=== PATIENT | male | born 1940 ===

== ENCOUNTER 2016-09-15 10:04 | Inpatient (IN) | payer MEDICARE ==
[2016-09-04 12:46] LABS: BASOPHILS 0.6 %; BASOPHILS ABSOLUTE 0.04 10/3/uL (0.0-0.16); EOSINOPHILS 4.4 %; IMMATURE GRANULOCYTES 0.1 %; IMMATURE GRANULOCYTES ABSOLUTE 0.01 10/3/uL (0.0-0.11); LYMPHOCYTES 15.3 %; LYMPHOCYTES ABSOLUTE 1.04 10/3/uL (0.67-4.30); MEAN CORPUS HGB CONC 32.3 g/dL (32.0-36.0); MEAN CORPUSCULAR HEMOGLOB 30.9 pg (26.0-34.0); MEAN CORPUSCULAR VOLUME 95.8 fL (80-100); MEAN PLATELET VOLUME 10.7 fL (9.2-13.0); MONOCYTES 9.9 %; MONOCYTES ABSOLUTE 0.67 10/3/uL (0.21-1.20); NEUTROPHILS 69.7 %; NEUTROPHILS ABSOLUTE 4.74 10/3/uL (2.02-8.40); PLATELET COUNT 213 10/3/uL (150-400); RBC DISTRIBUTION WIDTH 14.8 % (12.0-16.0); WHITE BLOOD CELLS 6.8 10/3/uL (4.5-10.5)
[2016-09-04 12:47] LABS: HEMATOCRIT 41.5 % (40.0-51.0); HEMOGLOBIN 13.4 g/dL (13.6-17.8); MANUAL DIFF NO %; RED CELL COUNT 4.33 10/6/uL (4.7-6.1)
[2016-09-04 12:50] LABS: INTERNATIONAL NORMAL RATI 1.1 UNITS (-); PROTIME (NOT ORD) 13.6 SEC (12.0-14.5)
[2016-09-04 13:07] LABS: B NATRIURETIC PEPTIDE (BNP) 61.2 PG/ML (< 100.0)
[2016-09-04 13:10] LABS: GLYCOHEMOGLOBIN (HbA1c) 5.4 % (4.7-6.1)
[2016-09-04 14:28] LABS: ASCORBIC ACID (UR NOT ORDER) NEG (NEG); BILIRUBIN, URINE NEGATIVE (NEG); KETONE, URINE NEGATIVE (NEG); LEUKOCYTE ESTERASE(NOT OR NEG (NEG); WBC (NOT ORDERED) (RFLEX) < 1 (0-5)
[2016-09-04 14:33] LABS: A/G RATIO 1.2 (0.7-1.9); ALBUMIN 3.8 G/DL (3.5-5.0); ALKALINE PHOSPHATASE 102 U/L (45-117); CALCIUM, SERUM 8.9 MG/DL (8.5-10.4); CHLORIDE, SERUM 99 MMOL/L (96-112); CO2 (CARBON DIOXIDE) 32 MMOL/L (24-34); CREATININE 1.97 MG/DL (0.70-1.30); GFR AFRICAN AMERICAN 37 ML/MIN (>=60); GFR NON AFRICAN AMERICAN 32 ML/MIN (>=60); GLOBULIN 3.3 G/DL (2.5-4.1); GLUCOSE, SERUM 121 MG/DL (60-99); POTASSIUM, SERUM 3.6 MMOL/L (3.5-5.3); SGOT(AST) 19 U/L (5-40); SGPT(ALT) 23 U/L (5-65); SODIUM, SERUM 140 MMOL/L (135-148); TOTAL PROTEIN 7.1 G/DL (6.0-8.5)
[2016-09-04 14:35] LABS: BUN (BLOOD UREA NITROGEN) 32 MG/DL (6-23)
--- NOTE | ~2016-09-15 | OP ---
Record Of Operation [facility] [address] [place]. [address] NAME: RIZWANA MASTERS : 40 STATUS : ADM IN PAT#: [id number] AGE: 76 ADM/REG DATE : 09/15/16 MR#: [id number] REPORT SERV DATE: 09/16/16 DICTATED BY: EZEKIEL HACKETT DATE: 09/15/16 REPORT STATUS : Draft TRANSCRIBED BY: MODL DATE: 09/15/16 DATE OF PROCEDURE: 09/15/2016 PREOPERATIVE DIAGNOSES: 1. Aortic valve stenosis. 2. Coronary artery disease status post previous coronary artery bypass grafting. 3. Peripheral vascular disease. 4. Cerebrovascular disease with history of right carotid endarterectomy. 5. Chronic kidney disease, stage III. 6. Atrial fibrillation, paroxysmal. 7. History of gastrointestinal bleed. 8. Morbid obesity. 9. Chronic obstructive pulmonary disease. 10.Obstructive sleep apnea. 11.Recent gastrointestinal bleed. 12.Pulmonary hypertension. POSTOPERATIVE DIAGNOSES: 1. Aortic valve stenosis. 2. Coronary artery disease status post previous coronary artery bypass grafting. 3. Peripheral vascular disease. 4. Cerebrovascular disease with history of right carotid endarterectomy. 5. Chronic kidney disease, stage III. 6. Atrial fibrillation, paroxysmal. 7. History of gastrointestinal bleed. 8. Morbid obesity. 9. Chronic obstructive pulmonary disease. 10.Obstructive sleep apnea. 11.Recent gastrointestinal bleed. 12.Pulmonary hypertension. PROCEDURES PERFORMED: 1. Transfemoral aortic valve replacement, right femoral, 26 mm S3 pericardial valve. 2. ProGlide closure of the right femoral artery x2, left femoral artery x1. 3. Left femoral vein. Placement of temporary venous pacing catheter, ventricular. 4. Ascending aortography. 5. Aorto-iliofemoral angiogram, right. 6. Transthoracic echocardiography. SURGEON: Cardiothoracic surgeon, Ezekiel Hackett M.D. INTERVENTION TUBULAR RIVETER: Dr. Levine and Dr. Amador. ECHO TUBULAR RIVETER: Presley Han M.D., Ph.D, F.A.C.C. PRIMARY TUBULAR RIVETER: Aníbal Devi M.D. Record Of Operation [facility] [address] [place]. [address] NAME: RIZWANA MASTERS : 40 STATUS : ADM IN PAT#: [id number] AGE: 76 ADM/REG DATE : 09/15/16 MR#: [id number] REPORT SERV DATE: 09/16/16 DICTATED BY: EZEKIEL HACKETT DATE: 09/15/16 REPORT STATUS : Draft TRANSCRIBED BY: KAYLA DATE: 09/15/16 INDICATIONS: This is a 76-year-old gentleman, who is 11 years following a coronary artery bypass grafting x4. He presented to [facility] at the end of July with chest discomfort and dyspnea with exertion. He was found to have significant anemia and did have evidence of GI hemorrhage. He was evaluated by Dr. Devi and GI medicine. GI bleed was resolved. Echocardiography demonstrated critical aortic valve stenosis. He then underwent a cardiac catheterization, which demonstrated significant aortic valve stenosis. His valve area was 1.0 cm2 with a peak gradient of 90 mmHg. He had patent grafts to the ramus and PDA vessels and a ROBERTSON graft to the LAD. A single occluded vein graft to the diagonal was noted. The patient had good ventricular function with an ejection fraction greater than 50%. He was referred for possible reoperative surgical aortic valve replacement. The patient had a calculated STS prediction of mortality of greater than 10% morbidity, mortality greater than 40%. This was discussed with the patient and his . He was felt to be at elevated risk and referred to be considered for possible transcatheter aortic valve replacement. The patient was seen in T[facility]R Clinic and he was felt to be a reasonable candidate for TAVR. He does have significant pulmonary hypertension and chronic kidney disease stage III. After discussing the operation, indications, risks, they wished to proceed. FINDINGS AT OPERATION: 1. Transthoracic echocardiography at the end of the operation demonstrated good ventricular function with no significant aortic valve insufficiency, very minimal mitral insufficiency. 2. The total rapid time of pacing was 26 seconds. 3. Actual time of TAVR deployment was 1601. 4. Pre cardiac output was 5.3. Post cardiac output 4.7 L/minute. 5. Pre deployment of valve area was 0.73 cm2. Post deployment valve area was 2.53 cm2. 6. Aortic pressures pre implant: Systolic, 133, diastolic 55, mean 75 mmHg. 7. Postimplant aortic pressures: Systolic 146, diastolic 54, mean 79 mmHg. 8. Pre-implant AV gradient 53 mmHg with peak gradient of 58 mmHg. Post implant gradient of 8 and 6 respectively. 9. Total contrast volume used 52 mL. 10.Fluoro time was 16.1 minutes. 11.Estimated blood loss 50 mL. 12.Total milligray used was 2653. 13.Aortic insufficiency index was 23. 14.The patient had bradycardia intermittently during the procedure and pacemaker was left in place in the left femoral vein with backup pacing. 15.Doppler pulses were present at the feet at the end of the operation. DESCRIPTION OF PROCEDURE: The patient was brought to the operating suite where he was laid in the supine position. MAC sedation with Diprivan was provided by Anesthesia. [place]-Lynette catheter had been placed preop along with arterial line. The patient's abdomen, groin, and legs were prepped with Hibiclens and ChloraPrep and draped with Ioban sterile sheets. Access to both femoral arteries and femoral vein were performed using micro puncture technique with Microglide wires and confirmatory arteriography in the vessels. 6-Russian introducers were placed in all three structures. Record Of Operation [place] [address] [place]. [address] NAME: RIZWANA MASTERS : 40 STATUS : ADM IN [facility]#: [id number] AGE: 76 ADM/REG DATE : 09/15/16 MR#: [id number] REPORT SERV DATE: 09/16/16 DICTATED BY: EZEKIEL HACKETT DATE: 09/15/16 REPORT STATUS : Draft TRANSCRIBED BY: KAYLA DATE: 09/15/16 Left femoral venous sheath was placed and this was a 6-Russian introducer also. Through this left femoral sheath, the temporary pacing catheter was advanced into the right ventricle and positioned under fluoroscopic guidance. Confirmatory pacing was performed and the catheter secured to the skin. A guidewire was then placed into the ascending aorta through the left femoral artery sheath and a pigtail catheter guided into the aortic root in the right coronary cusp guided by fluoroscopy. On the right groin, an exchange wire was placed through the 6-Russian introducer sheath and two ProGlides were then placed using the Perclose technique. Once these were secured, heparin was administered by Anesthesia. An exchange J catheter was then placed in the ascending aorta and a Lunderquist wire advanced into the ascending aorta. Then, this tract was dilated over the Lunderquist wire with the Maldonado dilator for the valve. We then placed the dilator into this sheath and this was advanced into the right femoral artery into the descending abdominal aorta under fluoroscopic guidance. Then, an AL1 catheter was advanced into the ascending aorta of Lunderquist wire which was removed and soft straight wire placed through the aortic valve into the left ventricle. Next, the Patrick catheter was advanced over this guidewire and placed in the left ventricle. Simultaneous pressure readings were obtained. Next, extra stiff wire was placed into the left ventricle through Patrick and the [place] catheter was removed. Then, the 26 mm S3 valve was brought up on the Maldonado introduction system. This was placed into the sheath and advanced into the descending thoracic aorta. The valve was positioned on the pusher and confirmed. The aortic valve prosthesis was then advanced across the aortic valve in position. With rapid atrial pacing, a confirmatory ascending aortogram was performed and then the valve was deployed in the usual manner using the balloon. The balloon was deflated and rapid ventricular pacing was discontinued. The valve delivery system was then brought back into the descending thoracic aorta. Contrast aortography demonstrated possible aortic insufficiency and we readvanced deployment system across the aortic valve once again and with the balloon in place, performed another dilation with an additional 1.5-2 mL of contrast. Once this was completed, the valve deployment system was then brought back down into the descending thoracic aorta. Echocardiography did not demonstrate any significant aortic insufficiency and on contrast aortography, we did not see any aortic insufficiency after the second dilatation. Then, the valve deployment system was brought out of the Maldonado sheath. An exchange wire was placed up into the sheath and the sheath was removed and the ProGlide Perclose devices were deployed in the usual fashion and good hemostasis was obtained at the right femoral artery. The pigtail catheter placed earlier in the right coronary cusp was then brought back down into the abdominal aorta at the bifurcation and a right aortoiliac angiogram with right femoral runoff was performed to confirm that there was good closure of the right femoral arteriotomy site and no stenosis. We then removed the pigtail catheter. An exchange wire was then placed up the left femoral Record Of Operation [facility] [address] [place]. [address] NAME: RIZWANA MASTERS : 40 STATUS : ADM IN [facility]#: [id number] AGE: 76 ADM/REG DATE : 09/15/16 MR#: [id number] REPORT SERV DATE: 09/16/16 DICTATED BY: EZEKIEL HACKETT DATE: 09/15/16 REPORT STATUS : Draft TRANSCRIBED BY: KAYLA DATE: 09/15/16 arterial sheath and the 6-Russian introducer was removed and a ProGlide device was placed into the left femoral artery and deployed. There was good hemostasis of the left femoral artery after deployment of the Perclose device. Because of the intermittent pacing after the deployment of the valve, the temporary transvenous pacemaker in the left femoral vein was left in place. The [place]-Lynette catheter was removed in the operating room. The patient tolerated the procedure well with no complications. Sponge and needle counts were correct. DISPOSITION: The patient was taken to the intensive care unit in stable condition. Pedal pulses were noted. NITHYA/KAYLA Ezekiel Hackett M.D. / [id number] CC: Swetha Garcia M.D. William Oellerich, M.D., Ph.D, F.A.C.C.
--- NOTE | ~2016-09-15 | OP ---
Record Of Operation [place] [address] [facility] [place]. [address] NAME: RIZWANA MASTERS : 40 STATUS : ADM IN PAT#: [id number] AGE: 76 ADM/REG DATE : 09/15/16 MR#: [id number] REPORT SERV DATE: 09/16/16 DICTATED BY: KATHLEEN GONZALES DATE: 09/15/16 REPORT STATUS : Draft TRANSCRIBED BY: KAYLA DATE: 09/15/16 DATE OF PROCEDURE: PROCEDURE PERFORMED: 1. Transcatheter aortic valve implantation with a 26 mm Maldnoado Gerson S3 valve from a right transfemoral approach. 2. Temporary transvenous pacemaker placement, left femoral vein to right ventricle. 3. Ascending aortogram. 4. Iliac angiogram. 5. Echocardiography. 6. ProGlide closure x2 right femoral artery successful. 7. ProGlide closure x1, left femoral artery successful. SURGEONS: Kathleen Gonzales M.D.; Sim Ortiz M.D.; and Edgar Hackett M.D. ABATEMENT WORKER: Sana. ANESTHESIA: MAC and local. ECHOCARDIOGRAPHY: Presley Han M.D., Ph.D, F.A.C.C. SPECIMEN REMOVED: None. ESTIMATED BLOOD LOSS: Less than 50 mL. FLUOROSCOPY TIME: 16.1 minutes, mGy 2653. CONTRAST: 52 mL nonionic. COMPLICATIONS: None. PREOPERATIVE DIAGNOSES: 1. Severe aortic stenosis with aortic valve area 0.8 square cm. 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 2. High surgical risk with STS score of 10% mortality and 40.1% morbidity and mortality. 3. Severe pulmonary hypertension with PA pressure of 80/35 mmHg. 4. Coronary artery disease, status post coronary artery bypass grafting. 5. Carotid artery disease with 70% right and grade 1 left carotid stenosis status post carotid endarterectomy. 6. Morbid obesity. 7. Sleep apnea. 8. Chronic obstructive pulmonary disease. 9. Chronic kidney disease stage III. 10.Hypertension. 11.Diabetes mellitus. 12.Status post GI bleed in July. Record Of Operation [place] [address] [facility] [place]. [address] NAME: RIZWANA MASTERS : 40 STATUS : ADM IN PAT#: [id number] AGE: 76 ADM/REG DATE : 09/15/16 MR#: [id number] REPORT SERV DATE: 09/16/16 DICTATED BY: CHRISTIANKATHLEEN Lukas DATE: 09/15/16 REPORT STATUS : Draft TRANSCRIBED BY: KAYLA DATE: 09/15/16 13.Renal artery stenosis. 14.Hyperlipidemia. POSTOPERATIVE DIAGNOSES: 1. 2. Severe aortic stenosis with aortic valve area 0.8 square cm. 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 3. High surgical risk with STS score of 10% mortality and 40.1% morbidity and mortality. 4. Severe pulmonary hypertension with PA pressure of 80/35 mmHg. 5. Coronary artery disease, status post coronary artery bypass grafting. 6. Carotid artery disease with 70% right and grade 1 left carotid stenosis status post carotid endarterectomy. 7. Morbid obesity. 8. Sleep apnea. 9. Chronic obstructive pulmonary disease. 10.Chronic kidney disease stage III. 11.Hypertension. 12.Diabetes mellitus. 13.Status post GI bleed in July. 14.Renal artery stenosis. 15.Hyperlipidemia. 16.No significant AI postoperatively by echocardiography or angiography. DATA FOR THE REGISTRY: 1. Rapid pacing time 26 seconds. Time of valve deployment 1601 hours. Preprocedure: Mean gradient 53, peak gradient 58, cardiac output of 5.3 L/minute. Aortic valve area 0.7 sq cm. Post procedure: Mean gradient of 8, peak gradient of 6, cardiac output of 4.7 L/minute. Aortic valve area 2.5 sq. cm. AI index of 23. Findings: Bradycardia and heart block following valve implantation pacemaker left in place. TECHNIQUE: After informed written consent was obtained from the patient in this situation, he was brought to the hybrid suite on the afternoon of 09/15/2016 in the fasting state. The time-out was performed and correct patient operative plan were confirmed. He had been seen by two cardiac surgeons, Dr. Murry and Dr. Hackett who felt that he was at high surgical risk. He was also seen by Dr. Jules Anders, cardiac surgeon, who felt he was at high surgical risk. Anesthesia was provided by the Anesthesia Service. Please see their notes for further details. MAC and local. The patient was prepped and draped in usual sterile fashion. Local anesthesia was accomplished using 1% lidocaine. Using modified Seldinger technique and a micropuncture set, a 6-Congolese sheath was placed in the left femoral artery, left femoral vein, and right femoral artery all with excellent blood return. The sheaths were double flushed and left in place. Femoral angiograms were obtained bilaterally which demonstrated good stick in the common femoral artery bilaterally, thought suitable for closure. Next a 5-Congolese balloon tipped pacer catheter was advanced from the left femoral vein to the RV under fluoroscopic guidance. The pacer was tested with threshold of less than 0.8 milliamps and secured to plastic dressings and set aside. Next, a 6-Congolese pigtail catheter was advanced over a flexible J-guidewire to the central aorta under fluoroscopic guidance. Guidewire was then withdrawn, catheter double flushed. Pressure recording was Record Of [address] [address] NAME: RIZWANA MASTERS : 40 STATUS : ADM IN [facility]#: [id number] AGE: 76 ADM/REG DATE : 09/15/16 MR#: [id number] REPORT SERV DATE: 09/16/16 DICTATED BY: KATHLEEN GONZALES DATE: 09/15/16 REPORT STATUS : Draft TRANSCRIBED BY: KAYLA DATE: 09/15/16 obtained. Angles were obtained. Next, a pre-close using 2 ProGlide at 10 o'clock and 2 o'clock position was performed in the right femoral artery. Next, the sheath was exchanged for the Maldonado sheath, which was double flushed and left in place. Next, the patient was heparinized to an ACT of greater than 250, 6-Congolese AL1 diagnostic catheter was advanced over a flexible J-guidewire to the central aorta under fluoroscopic guidance. Using a straight guidewire, the aortic valve was crossed. The catheter was then brought to the LV position and using an exchange J guidewire, the catheter was exchanged for a Patrick dual- lumen pigtail catheter. Simultaneous LV and aortic pressures were then obtained. Next, the pre-shaped Extra Stiff wire was advanced to the LV position. The catheter was withdrawn from the body. When all was in readiness, a 26 mm Maldonado Gerson S3 valve was brought to the table orientation was confirmed. The valve was then brought to the descending aorta position under fluoroscopic guidance and the balloon was loaded into the valve in the usual fashion. Alignment was confirmed. Next, the valve was brought around the aortic arch using the flexion on the delivery system, and the valve was brought to the aortic valve position. The pusher was then brought back, fine positioning was performed; when all was in readiness, the sequence was commenced. Respirations were held. Rapid pacing was performed, pressure fell. Cineangiography was performed. Injection was performed which demonstrated good position. The valve was deployed with complete balloon and valve expansion. The balloon was deflated and pacing was ceased. Respirations were resumed. Position looked good under fluoroscopy. Followup angiography revealed mild perivalvular aortic insufficiency. Echocardiography was technically difficult but did not confirm aortic insufficiency; however, due to the angiographic findings decision was made to post dilate using an additional 1.5 mL. The balloon was then brought back to the valve position and the sequence was commenced again with complete balloon and valve expansion the balloon was deflated and followup angiography revealed no significant aortic insufficiency. The pigtail catheter was replaced and simultaneous pressures were performed, but there was no significant gradient. AI index was 23, pullback recording of pressures obtained and the pressures matched. The Maldonado sheath was then removed from the body. The ProGlide sutures were tied with good hemostasis. There was no bleeding and no hematoma. Next, angiogram was performed, which demonstrated good patency of the iliac system with no evidence of dissection or stenosis. Next, ProGlide closure of the left femoral artery was performed with good hemostasis. There was no bleeding and no hematoma. The pacing catheter was left in place due to heart block and bradycardia. He was intermittently using the pacer at the conclusion of the procedure. The patient was given protamine. He tolerated the procedure well without apparent complication. He was then returned to his room in good condition for access management. BN/MODL Kathleen Gonzales M.D. / [id number] CC: Edgar Hackett M.D. Record Of Operation [address] [address] NAME: RIZWANA MASTERS : 40 STATUS : ADM IN PAT#: [id number] AGE: 76 ADM/REG DATE : 09/15/16 MR#: [id number] REPORT SERV DATE: 09/16/16 DICTATED BY: KATHLEEN GONZALES DATE: 09/15/16 REPORT STATUS : Draft TRANSCRIBED BY: MODL DATE: 09/15/16 Flynn Roque M.D.
--- NOTE | ~2016-09-15 | CN ---
Consultation Report [facility] [address] [place]. [address] NAME: RIZWANA MASTERS : 40 STATUS : ADM IN PAT#: [id number] AGE: 76 ADM/REG DATE : 09/15/16 MR#: [id number] REPORT SERV DATE: 09/16/16 DICTATED BY: JOANN IGLESIAS DATE: 09/16/16 REPORT STATUS : Draft TRANSCRIBED BY: MODL DATE: 09/16/16 CONSULT DATE OF CONSULTATION: REASON FOR CONSULTATION: Medical consult for diabetes management. HISTORY OF PRESENT ILLNESS: This is a very pleasant 76 years old gentleman with an extensive past medical history significant for aortic stenosis; coronary artery disease, status post prior CABG; history of CVA; chronic kidney disease; paroxysmal atrial fibrillation; GI bleed; diabetes type 2, insulin dependent; morbid obesity; obstructive sleep apnea, pulmonary hypertension, who has been recently admitted to Cardiology Service for a transcatheter aortic valve implantation and a transvenous temporary pacemaker placement. The patient does have a history of diabetes which is insulin dependent. He is also on Victoza at home with fairly well blood sugar control. Postoperative, the patient is doing great. He denies any complaints of chest pain or shortness of breath. No PND or orthopnea. He does not have any nausea or vomiting. No diarrhea or constipation. No headaches. No other complaints. His blood sugars have been well controlled on insulin drip. Currently, he is able to eat and tolerate diet with no problems. Hospitalist Service has been asked for consult for his diabetes management. PAST MEDICAL HISTORY: Again, past medical history significant for diabetes type 2, insulin dependent; history of GI bleed; history of coronary artery disease, status post CABG; history of chronic kidney disease; peripheral vascular disease; diabetes type 2; hypertension; hyperlipidemia; paroxysmal atrial fibrillation; obstructive sleep apnea; obesity; gout; gallstones; and renal stones. PAST SURGICAL HISTORY: Include CABG, hernia repair, and kidney stone removal. FAMILY HISTORY: Significant for coronary artery disease. ALLERGIES: HE DOES NOT HAVE ANY DRUG ALLERGIES. MEDICATIONS: Currently include allopurinol, aspirin, Bumex, Ancef, vitamin D, Plavix, Apresoline, Mevacor, Bactroban, niacin, Protonix, Senokot, and Levemir. REVIEW OF SYSTEMS: A 14-point review of system has been obtained and pertinent positive has been listed into the history of present illness. Otherwise, negative except those underlying above OBJECTIVE: VITAL SIGNS: The patient is afebrile. Blood pressure 136/63, heart rate 68, respiratory rate 14, saturating 97% on room air. Blood sugar 119, 104, 142, 150, 141. GENERAL: He is a very pleasant, well-developed, well-nourished gentleman, in non acute distress. He is alert and oriented x3. Nonfocal. He follows all his commands Consultation Report [place] [address] [place] [place]. [address] NAME: RIZWANA MASTERS : 40 STATUS : ADM IN PAT#: [id number] AGE: 76 ADM/REG DATE : 09/15/16 MR#: [id number] REPORT SERV DATE: 09/16/16 DICTATED BY: JOANN IGLESIAS DATE: 09/16/16 REPORT STATUS : Draft TRANSCRIBED BY: KAYLA DATE: 09/16/16 appropriately. HEENT: Show pupils equal, round, and reactive to light. Extraocular movements intact. No JVD. No lymphadenopathy. No thyromegaly appreciated. CHEST: Eval shows bilateral air entry. Clear anteroposterior. No wheezes, crackles, or rhonchi appreciated. CARDIOVASCULAR: He has regular rate and rhythm. S1, S2 positive. No S3. No S4. No murmurs, rubs, or gallops appreciated. ABDOMEN: Soft with positive bowel sounds. Nontender. No guarding. No rebound. EXTREMITIES: No clubbing or cyanosis. Plus edema. NEUROLOGIC: He is alert and oriented x3. Nonfocal. He follows all his commands appropriately. LABORATORY DATA: Labs from today include sodium of 143, potassium 4.1, chloride 106, CO2 of 29, BUN 19, creatinine 1.50, glucose 140. White count 9.7, hematocrit 33.7, platelets 132. ASSESSMENT AND PLAN: This is a 76-year-old gentleman with aortic stenosis, status post transcatheter aortic valve replacement with diabetes type 2, insulin dependent. Currently, we are going to hold Victoza. We are going to start him on Levemir 10 units subcutaneously q.h.s. stop insulin drip after Levemir is given. Accu-Cheks before every meals and q.h.s. Sliding scale insulin subcutaneously level 1. Add a hemoglobin A1c to today's labs. Further workup and recommendation pending above. We will continue to follow with you. CF/MODL Joann Iglesias M.D. / [id number] CC: Swetha Garcia M.D.
--- NOTE | ~2016-09-15 | CN ---
Consultation Report [facility] [address] [place]. [address] NAME: RIZWANA MASTERS : 40 STATUS : ADM IN [facility]#: [id number] AGE: 76 ADM/REG DATE : 09/15/16 MR#: [id number] REPORT SERV DATE: 09/17/16 DICTATED BY: ALBAN ZARATE DATE: 09/16/16 REPORT STATUS : Draft TRANSCRIBED BY: MODL DATE: 09/16/16 NEPHROLOGY CONSULTATION DATE OF CONSULTATION: 09/16/2016 REASON FOR CONSULT: Chronic kidney disease, postop day #1, TAVR. HISTORY OF PRESENT ILLNESS: Mr. Masters is a pleasant 76-year-old white male with chronic kidney disease followed in the office of [facility] by Dr. Evans. Baseline creatinine has previously been 1.6 to 2.0. He was hospitalized here at [facility] in 07/2016 with atrial fibrillation, GI bleed, and acute kidney injury. He required 4 units of packed red blood cells during that hospitalization and creatinine was 3.6 on admission, down to 1.8 by the time of discharge. In the office on 08/26/2016, creatinine was 1.6. He is now postop day #1, TAVR. Creatinine today is 1.6. His ARB and Aldactone have been on hold since his recent admission in July. PAST MEDICAL HISTORY: 1. Chronic kidney disease, baseline creatinine 1.6 to 2.0. 2. CABG x3, 2005. 3. History of CEA. 4. Postop day 1, TAVR for severe aortic stenosis. 07/2016, echo EF 60% with aortic valve area 0.8 sq cm. Cardiac cath of 07/2016 showed three or four patent saphenous vein grafts with PASP of 52 mmHg and ROYER 1 sq cm. 5. Paroxysmal atrial fibrillation. 6. Hypertension. 7. Insulin-dependent diabetes mellitus. 8. Hyperlipidemia. 9. Gout. 10.History of left renal artery stenosis of greater than 60% that has been medically managed. MEDICATIONS: Allopurinol 100 mg h.s., Bumex 1 mg daily, aspirin 81 mg daily, Plavix 75 mg daily, vitamin D3, lovastatin 40 mg h.s., niacin 500 mg h.s., Protonix 40 mg daily, hydralazine 25 mg t.i.d., Lantus insulin 35 units h.s., Victoza 1.8 mg at bedtime, amiodarone 100 mg daily, Claritin, and ISDN 10 mg b.i.d. FAMILY HISTORY: No ESRD. SOCIAL HISTORY: He is a retired career, , lives in [place]. REVIEW OF SYSTEMS: Significant for TAVR yesterday for severe aortic stenosis. Consultation Report [address] [place]. [address] NAME: RIZWANA MASTERS : 40 STATUS : ADM IN [facility]#: [id number] AGE: 76 ADM/REG DATE : 09/15/16 MR#: [id number] REPORT SERV DATE: 09/17/16 DICTATED BY: ALBAN ZARATE DATE: 09/16/16 REPORT STATUS : Draft TRANSCRIBED BY: KAYLA DATE: 09/16/16 PHYSICAL EXAMINATION: VITAL SIGNS: Temperature 97.9, pulse 74, respirations 20, blood pressure 156/70, and 97% saturation on room air. 2126 mL of intake with 650 mL of output. CVP 4. GENERAL: Generally, he is a pleasant elderly white male, who is awake, alert, oriented, and cooperative with the exam. He is lying flat in his hospital bed. Presently in no distress. HEENT: Sclerae without icterus. Conjunctivae not injected. Oropharynx is clear. No JVD. LUNGS: He has bilateral rhonchi anteriorly. No dyspnea or tachypnea at rest on room air. Regular rate and rhythm. 2/6 murmur. No rub. ABDOMEN: Obese, soft, nontender, and nondistended. Bowel sounds present throughout. No rebound, guarding, or peritoneal signs. EXTREMITIES: Show 1+ pitting edema of the ankles to the knees. SKIN: Without rash or livedo reticularis. : Deferred. There is no Rueda catheter in place. He has a left chest IV access. Mood and affect are appropriate. MUSCULOSKELETAL: No active tenosynovitis or gout. NEURO: Grossly nonfocal. LABORATORY DATA: Sodium 143, potassium 4.1, bicarb 29, BUN 19, creatinine 1.6, GFR 42 mL/minute, calcium 7.9, magnesium 2.3. White count 9.7 without eosinophilia, hemoglobin 11.2, and platelets 132,000. Chest x-ray without active infiltrates. ASSESSMENT AND PLAN: Mr. Masters has chronic kidney disease, baseline creatinine 1.6 to 2.0; previous bypass surgery, EF 60%; paroxysmal atrial fibrillation; severe aortic stenosis; postop day #1, TAVR; insulin-dependent diabetes mellitus; hypertension; renal artery stenosis, left kidney with medical management; and hyperlipidemia. His renal function is stable and at baseline. He appears euvolemic on exam. He is on hydralazine and nitroglycerin for afterload reduction with his ARB and Aldactone presently on hold. Continue current diuretic p.o. Bumex. We will follow closely with you. Hopefully, can discharge home in the next 24-48 hours. Supportive care. Watch labs. No need for dialysis at this time. CARLOS A/KAYLA Alban Zarate M.D. / [id number] CC: Edgar Hackett M.D. Consultation Report [address] [address] NAME: RIZWANA MASTERS : 40 STATUS : ADM IN PAT#: [id number] AGE: 76 ADM/REG DATE : 09/15/16 MR#: [id number] REPORT SERV DATE: 09/17/16 DICTATED BY: ALABN ZARATE DATE: 09/16/16 REPORT STATUS : Draft TRANSCRIBED BY: RONNIEL DATE: 09/16/16 Alex Evans M.D.
[~2016-09-15 10:04] MED LIST: APRES50 PO; ASAB PO; BUM1 PO; CLARIT10 PO; CORDARONE PO; DIOVAN320 MG PO; DURAFLEX PO; ELIQUIS 5 MG TAB5 MG PO; FIBER LAXATIVE PO; ISORDIL10 PO; LANTUS SC; LANTUSCART SC; MEVACOR40 MG PO; NIACOR500 MG PO; PLAVIX PO; PROTONIX PO; SPIRO25 PO; VICTOZA18 MG/3 ML SC; VITAMIN D31000 UNIT PO; Z100 PO; ZEBETA5 PO
[2016-09-15 11:32] LABS: MAX AMP (ADP) 42.1 MM (35-68); TEG - ANGLE 68.7 DEG (53-72); TEG - COAGULATION INDEX 0.6 (-3 TO 3); TEG - MAXIMUM AMPLITUDE 66.7 MM (50-70); TEG - RATE 6.7 MIN (5.0-10.0); TEG PLAVIX/EFFIENT/TICLID(ADP) 43.3 % INHIB (< 40)
[2016-09-15 17:59] LABS: HEMOGLOBIN 11.7 g/dL (13.6-17.8); PLATELET COUNT 159 10/3/uL (150-400)
[2016-09-15 18:02] LABS: CHLORIDE, SERUM 104 MMOL/L (96-112); CO2 (CARBON DIOXIDE) 28 MMOL/L (24-34); CREATININE 1.63 MG/DL (0.70-1.30); GFR AFRICAN AMERICAN 47 ML/MIN (>=60); GFR NON AFRICAN AMERICAN 40 ML/MIN (>=60); POTASSIUM, SERUM 3.8 MMOL/L (3.5-5.3); SODIUM, SERUM 141 MMOL/L (135-148)
[2016-09-15 18:03] LABS: BUN (BLOOD UREA NITROGEN) 21 MG/DL (6-23); CALCIUM, SERUM 7.9 MG/DL (8.5-10.4); GLUCOSE, SERUM 167 MG/DL (60-99)
[2016-09-15 18:05] LABS: INTERNATIONAL NORMAL RATI 1.2 UNITS (-); PROTIME (NOT ORD) 15.2 SEC (12.0-14.5)
[2016-09-15 18:06] LABS: PARTIAL THROMBO TIME 34.5 SEC (22.5-37.2)
[2016-09-15 23:07] LABS: BUN (BLOOD UREA NITROGEN) 20 MG/DL (6-23); CHLORIDE, SERUM 106 MMOL/L (96-112); CO2 (CARBON DIOXIDE) 29 MMOL/L (24-34); GFR AFRICAN AMERICAN 48 ML/MIN (>=60); GFR NON AFRICAN AMERICAN 41 ML/MIN (>=60); GLUCOSE, SERUM 171 MG/DL (60-99); POTASSIUM, SERUM 3.8 MMOL/L (3.5-5.3); SODIUM, SERUM 141 MMOL/L (135-148)
[2016-09-15 23:11] LABS: HEMOGLOBIN 11.4 g/dL (13.6-17.8)
[2016-09-16 03:50] LABS: BASOPHILS 0.3 %; BASOPHILS ABSOLUTE 0.03 10/3/uL (0.0-0.16); EOSINOPHILS ABSOLUTE 0.19 10/3/uL (0.0-0.53); HEMATOCRIT 33.7 % (40.0-51.0); HEMOGLOBIN 11.2 g/dL (13.6-17.8); IMMATURE GRANULOCYTES 0.4 %; IMMATURE GRANULOCYTES ABSOLUTE 0.04 10/3/uL (0.0-0.11); LYMPHOCYTES ABSOLUTE 0.78 10/3/uL (0.67-4.30); MEAN CORPUS HGB CONC 33.2 g/dL (32.0-36.0); MEAN CORPUSCULAR HEMOGLOB 31.5 pg (26.0-34.0); MEAN CORPUSCULAR VOLUME 94.7 fL (80-100); MONOCYTES 10.9 %; MONOCYTES ABSOLUTE 1.06 10/3/uL (0.21-1.20); NEUTROPHILS 78.4 %; NEUTROPHILS ABSOLUTE 7.61 10/3/uL (2.02-8.40); PLATELET COUNT 132 10/3/uL (150-400); RBC DISTRIBUTION WIDTH 14.6 % (12.0-16.0); RED CELL COUNT 3.56 10/6/uL (4.7-6.1)
[2016-09-16 03:52] LABS: MANUAL DIFF NO %; WHITE BLOOD CELLS 9.7 10/3/uL (4.5-10.5)
[2016-09-16 04:16] LABS: BUN (BLOOD UREA NITROGEN) 19 MG/DL (6-23); CALCIUM, SERUM 7.9 MG/DL (8.5-10.4); CHLORIDE, SERUM 106 MMOL/L (96-112); CO2 (CARBON DIOXIDE) 29 MMOL/L (24-34); CREATININE 1.58 MG/DL (0.70-1.30); GFR AFRICAN AMERICAN 49 ML/MIN (>=60); GFR NON AFRICAN AMERICAN 42 ML/MIN (>=60); GLUCOSE, SERUM 140 MG/DL (60-99); POTASSIUM, SERUM 4.1 MMOL/L (3.5-5.3); SODIUM, SERUM 143 MMOL/L (135-148)
[2016-09-16 20:05] LABS: HEMATOCRIT 36.7 % (40.0-51.0)
[2016-09-17 04:21] LABS: BASOPHILS 0.4 %; BASOPHILS ABSOLUTE 0.04 10/3/uL (0.0-0.16); EOSINOPHILS 5.4 %; HEMATOCRIT 33.5 % (40.0-51.0); IMMATURE GRANULOCYTES 0.3 %; IMMATURE GRANULOCYTES ABSOLUTE 0.03 10/3/uL (0.0-0.11); LYMPHOCYTES 9.8 %; LYMPHOCYTES ABSOLUTE 0.91 10/3/uL (0.67-4.30); MEAN CORPUS HGB CONC 32.8 g/dL (32.0-36.0); MEAN CORPUSCULAR HEMOGLOB 31.2 pg (26.0-34.0); MEAN CORPUSCULAR VOLUME 94.9 fL (80-100); MEAN PLATELET VOLUME 10.8 fL (9.2-13.0); MONOCYTES 11.8 %; MONOCYTES ABSOLUTE 1.09 10/3/uL (0.21-1.20); NEUTROPHILS 72.3 %; NEUTROPHILS ABSOLUTE 6.67 10/3/uL (2.02-8.40); PLATELET COUNT 125 10/3/uL (150-400); RBC DISTRIBUTION WIDTH 14.8 % (12.0-16.0); RED CELL COUNT 3.53 10/6/uL (4.7-6.1); WHITE BLOOD CELLS 9.2 10/3/uL (4.5-10.5)
[2016-09-17 04:22] LABS: MANUAL DIFF NO %
[2016-09-17 04:45] LABS: BUN (BLOOD UREA NITROGEN) 20 MG/DL (6-23); CALCIUM, SERUM 8.1 MG/DL (8.5-10.4); CHLORIDE, SERUM 104 MMOL/L (96-112); CO2 (CARBON DIOXIDE) 28 MMOL/L (24-34); CREATININE 1.66 MG/DL (0.70-1.30); GFR AFRICAN AMERICAN 46 ML/MIN (>=60); GFR NON AFRICAN AMERICAN 39 ML/MIN (>=60); POTASSIUM, SERUM 4.1 MMOL/L (3.5-5.3); SODIUM, SERUM 140 MMOL/L (135-148)
[2016-09-17 04:55] LABS: ALBUMIN 2.8 G/DL (3.5-5.0); GLUCOSE, SERUM 183 MG/DL (60-99); PHOSPHORUS, SERUM 1.9 MG/DL (2.5-4.5)
[2016-09-17] MEDS ORDERED: DURICEF PO (12:12)
[2016-09-17] MEDS ORDERED: DIOV160 PO (12:13)
== END 2016-09-17 13:00 | disposition home or self-care (01) | DRG 267 ==
LOC: SDC/OF 10:04 → CVICU 16:34 → 5NO 09-16 21:26 → CVICU 09-16 21:47
PROVIDERS: Thoracic Surgery (Cardiothoracic Vascular Surgery)
PROC: B246ZZ4 Ultrasonography of Right and Left Heart, Transesophageal (ICD-10-PCS; 2016-09-15)
PROC: 02RF38Z Replacement of Aortic Valve with Zooplastic Tissue, Percutaneous Approach (ICD-10-PCS; principal; 2016-09-15 14:30)
DX: I35.0 Nonrheumatic aortic (valve) stenosis (principal); Z68.41 Body mass index [BMI] 40.0-44.9, adult; I97.89 Other postprocedural complications and disorders of the circulatory system, not elsewhere classified; Z00.6 Encounter for examination for normal comparison and control in clinical research program; E11.22 Type 2 diabetes mellitus with diabetic chronic kidney disease; I27.2 Other secondary pulmonary hypertension; I48.0 Paroxysmal atrial fibrillation; N18.3 Chronic kidney disease, stage 3 (moderate); I25.10 Atherosclerotic heart disease of native coronary artery without angina pectoris; J44.9 Chronic obstructive pulmonary disease, unspecified; G47.33 Obstructive sleep apnea (adult) (pediatric); E66.01 Morbid (severe) obesity due to excess calories; I50.9 Heart failure, unspecified; I87.2 Venous insufficiency (chronic) (peripheral); I12.9 Hypertensive chronic kidney disease with stage 1 through stage 4 chronic kidney disease, or unspecified chronic kidney disease; E78.5 Hyperlipidemia, unspecified; M10.9 Gout, unspecified; I70.1 Atherosclerosis of renal artery; Z86.73 Personal history of transient ischemic attack (TIA), and cerebral infarction without residual deficits; Z79.82 Long term (current) use of aspirin; Z95.1 Presence of aortocoronary bypass graft; Z79.02 Long term (current) use of antithrombotics/antiplatelets; Z79.899 Other long term (current) drug therapy; Z79.4 Long term (current) use of insulin
CPT/HCPCS: 36415; 71010; 71020; 80048; 80053; 80069; 81001; 82330; 82803; 82947; 82962; 83036; 83735; 83880; 84132; 84295; 85014; 85018; 85025; 85049; 85347; 85384; 85576; 85576-59; 85610; 85730; 86850; 86900; 86901; 86920; 87641; 93005; A9270-GY; C1751; C1769; C8929; J0690; J2250; J2370; J3010; Q9957